=== PATIENT | male | born 1970 | race Caucasian/White ===

== ENCOUNTER 2018-03-22 12:42 | Outpatient (RCR) | payer OTHER | END 2018-03-27 | LOC: M OT 12:42 | PROVIDERS: ATTEND Physician Assistant | DX: S06.0X1D Concussion with loss of consciousness of 30 minutes or less, subsequent encounter (principal); G44.319 Acute post-traumatic headache, not intractable; H53.9 Unspecified visual disturbance; R41.89 Other symptoms and signs involving cognitive functions and awareness; R46.89 Other symptoms and signs involving appearance and behavior; R26.89 Other abnormalities of gait and mobility; W18.30XD Fall on same level, unspecified, subsequent encounter; Y92.009 Unspecified place in unspecified non-institutional (private) residence as the place of occurrence of the external cause ==

== ENCOUNTER 2018-04-03 13:36 | Outpatient (RCR) | payer OTHER | END 2018-04-27 | LOC: M OT 13:36 | PROVIDERS: ATTEND Physician Assistant | DX: F07.81 Postconcussional syndrome (principal) ==